=== PATIENT | female | born 1965 | race Caucasian/White ===

== ENCOUNTER 2018-08-15 07:59 | Day surgery (SDC) | payer BC ==
[~2018-08-15 07:59] MED LIST: PROPOFOL 500 MG/50 ML EMU IV ONE
[2018-08-15 08:51] VITALS: RESP 16
[2018-08-15 09:15] LABS: BILIRUBIN,TOTAL 0.7 mg/dl (0.2-1.0); CALCIUM 8.6 mg/dl (8.5-10.1); CARBON DIOXIDE 25.1 mEq/L (21-32); CREATININE 0.94 mg/dl (0.60-1.00); POTASSIUM 3.8 mMol/L (3.5-5.1)
[2018-08-15 10:26] VITALS: BP 122/85; PULSE 62; TEMP 99.3; O2SAT 100
== END 2018-08-15 10:49 | disposition home or self-care (01) ==
LOC: SURG 07:59
PROVIDERS: ATTEND Surgery
DX: Z12.11 Encounter for screening for malignant neoplasm of colon (principal); Z86.010 Personal history of colon polyps; Z80.0 Family history of malignant neoplasm of digestive organs; D12.8 Benign neoplasm of rectum
CPT/HCPCS: 80053; 99001; J2704